=== PATIENT | male | born 1945 | race African-American/Black ===

== ENCOUNTER 2020-01-29 01:45 | Emergency (ER) | payer BC, MEDICAID, MEDICARE ==
[~2020-01-29] VITALS: Ht 180.3 cm; Wt 88.9 kg
[2020-01-29 05:40] LABS: MEAN CORPUSCULAR HEMOGLOBIN 25.4 pg (27.5-34.5); MEAN CORPUSCULAR HGB CONC 31.5 g/dL (33.2-36.2); MEAN CORPUSCULAR VOLUME 80.7 fL (81-97); MEAN PLATELET VOLUME 9.5 fL (7.4-10.4); PLATELET COUNT 254 x10^3/uL (130-400); RED BLOOD COUNT 4.24 x10^6/uL (4.38-5.82); RED CELL DISTRIBUTION WIDTH 29.1 % (9.4-14.8)
[2020-01-29 05:41] LABS: ALANINE AMINOTRANSFERASE 25 U/L (12-78); ALBUMIN 3.6 g/dL (3.4-5.0); ANION GAP 4 mmol/L (5-15); CALCIUM 8.9 mg/dL (8.5-10.1); CHLORIDE 110 mmol/L (98-107); CREATININE 1.38 mg/dL (0.7-1.3)
[2020-01-29 05:44] LABS: ALKALINE PHOSPHATASE 72 U/L (45-117); BILIRUBIN,TOTAL 0.7 mg/dL (0.2-1.0); TOTAL PROTEIN 7.6 g/dL (6.4-8.2)
[2020-01-29] MEDS ORDERED: ACETAMINOPHEN 500 MG TABLET ONE (05:46)
[2020-01-29 05:51] LABS: MICROSCOPIC NOT IND
[2020-01-29 05:59] VITALS: BP 130/82
[2020-01-29] MEDS ORDERED: ACETAMINOPHEN 500 MG TABLET PO ONE (06:00)
[2020-01-29 06:35] LABS: INTERNATIONAL NORMALIZED RATIO 3.15 (0.93-1.1); PROTHROMBIN TIME 32.8 Seconds (9.6-11.5)
[2020-01-29 06:42] LABS: BASOPHILS # (AUTO) 0.01 x10^3/uL (0-0.1); BASOPHILS % (AUTO) 0 % (0-1); EOSINOPHILS # (AUTO) 0.16 x10^3/uL (0-0.4); EOSINOPHILS % (AUTO) 2 % (1-7); LYMPHOCYTES # (AUTO) 1.09 x10^3/uL (1-3.4); LYMPHOCYTES % (AUTO) 11 % (22-44); MD MORPH REVIEW ONLY; MONOCYTES # (AUTO) 1.05 x10^3/uL (0.2-0.8); MONOCYTES % (AUTO) 10 % (2-9); NEUTROPHILS % (AUTO) 77 % (42-75)
[2020-01-29 06:44] LABS: ANISOCYTOSIS 2+; HYPOCHROMIA 1+
[2020-01-29 06:45] LABS: POLYCHROMASIA 1+
[2020-01-29 06:46] LABS: OVALOCYTES 1+; TARGET CELLS 1+
[2020-01-29 06:47] LABS: <PLATELET ESTIMATE> ADEQUATE; <PLT MORPHOLOGY> NORMAL PLT MORPH; SCHISTOCYTES 1+; SPHEROCYTES 1+
--- NOTE | 2020-01-29 06:54 | NUR ---
Report given to next shift RN
== END 2020-01-29 07:54 | disposition home or self-care (01) ==
LOC: ED 04:41
DX: R10.30 Lower abdominal pain, unspecified (principal); R10.2 Pelvic and perineal pain; I11.9 Hypertensive heart disease without heart failure; Z87.891 Personal history of nicotine dependence
CPT/HCPCS: 36415; 80053; 81003; 83690; 85025; 85610; 99283